=== PATIENT | male | born 1980 | race Caucasian/White ===

== ENCOUNTER 2019-04-19 08:16 | Emergency (ER) | payer MEDICAID ==
[~2019-04-19] VITALS: Ht 182.9 cm; Wt 111.6 kg
[2019-04-19 08:23] VITALS: BP 142/94; Ht 182.9 cm; Wt 111.6 kg
== END 2019-04-19 10:05 | disposition home or self-care (01) ==
LOC: ED 08:16
DX: S93.402A Sprain of unspecified ligament of left ankle, initial encounter (principal); X58.XXXA Exposure to other specified factors, initial encounter; Y93.I9 Activity, other involving external motion; Y92.413 State road as the place of occurrence of the external cause; Y99.8 Other external cause status
CPT/HCPCS: Q0092

== ENCOUNTER 2019-05-28 07:50 | Emergency (ER) | payer SELFPAY ==
[~2019-05-28] VITALS: Ht 182.9 cm; Wt 111.1 kg
[2019-05-28 07:56] VITALS: Ht 182.9 cm; Wt 111.1 kg
[2019-05-28 14:00] VITALS: BP 138/84
== END 2019-05-28 14:00 | disposition short-term general hospital (02) ==
LOC: ED 07:50
DX: N48.30 Priapism, unspecified (principal)
CPT/HCPCS: J2001; J2060; J2270; J2370; J2405

== ENCOUNTER 2019-08-12 07:02 | Emergency (ER) | payer SELFPAY ==
[~2019-08-12] VITALS: Ht 182.9 cm; Wt 109.8 kg
[2019-08-12 07:08] VITALS: Ht 182.9 cm; Wt 109.8 kg
[2019-08-12 09:55] VITALS: BP 141/84
== END 2019-08-12 09:55 | disposition home or self-care (01) ==
LOC: ED 07:02
DX: S20.212A Contusion of left front wall of thorax, initial encounter (principal); Y04.8XXA Assault by other bodily force, initial encounter; Y93.89 Activity, other specified; Y92.89 Other specified places as the place of occurrence of the external cause; Y99.8 Other external cause status
CPT/HCPCS: J1100; J1885

== ENCOUNTER 2020-01-05 10:07 | Emergency (ER) | payer OTHER, SELFPAY ==
[~2020-01-05] VITALS: Ht 185.4 cm; Wt 110.2 kg
[2020-01-05 10:16] VITALS: Ht 185.4 cm; Wt 110.2 kg
[2020-01-05 10:19] VITALS: BP 126/60
[2020-01-05 11:22] LABS: CALCIUM 8.7 mg/dL (8.5-10.1); CARBON DIOXIDE 26.9 mmol/L (21-32); CHLORIDE SERUM 103 mmol/L (98-107); CREATININE SERUM 1.2 mg/dL (0.7-1.3); GFR1 > 60 mL/min; GLUCOSE SERUM 87 mg/dL (74-106); POTASSIUM SERUM 4.2 mmol/L (3.5-5.1); SODIUM SERUM 138 mmol/L (136-145)
[2020-01-05 11:26] LABS: ALBUMIN 3.8 g/dL (3.4-5.0); ALKALINE PHOSPHATASE 71 U/L (46-116); ALT/SGPT 42 U/L (16-63); AST/SGOT 26 U/L (15-37); BILIRUBIN TOTAL 0.8 mg/dL (0.20-1.00); C REACTIVE PROTEIN 3.2 mg/dL (<=0.9); TOTAL PROTEIN, SERUM 7.9 g/dL (6.4-8.2)
[2020-01-05 11:32] LABS: BASOPHIL % 0 % (0-2); PLATELET COUNT 153 x10^3mcL (130-400); RED CELL DISTRIBUTION WIDTH 13.9 % (11.5-14.5)
== END 2020-01-05 13:39 | disposition home or self-care (01) ==
LOC: ED 10:07
PROVIDERS: Specialist
DX: B34.9 Viral infection, unspecified (principal)
CPT/HCPCS: 36415; 87804; Q0092